=== PATIENT | female | born 1940 | race Caucasian/White ===

== ENCOUNTER 2016-05-13 14:54 | Emergency (ER) | payer OTHER ==
[2016-05-13] MEDS ORDERED: NORCO-5 PO ONE (16:45)
--- NOTE | 2016-05-13 17:14 | PROVIDER DOCUMENTATION ---
HPI-Musculoskeletal Pain/Inj <Zee Skelton - Last Filed: 05/13/16 19:40> - GENERAL Source: patient - HX OF PRESENT ILLNESS-MUSKULOSKELTAL Quality of Pain: reports: aching, dull Severity in ED: moderate Onset/Duration: 4-6 hours ago (1330) Timing: still present, intermittent Modifying Factors: improves with: immobilization. worse with: exercise, movement, palpation Any recent injury?: Yes Locality of Occurance: Other (Dr. 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 denies: back/neck pain, chest pain, diaphoresis, headaches, puncture wound, shortness of breath, sensory/ motor loss, snap/crack/pop sensation, trouble walking - UPPER EXTREMITY PAIN/INJURY Extremities Pain Location: shoulder: left Context / Method of Injury: reports: fell Associated Symptoms: reports: sensory/motor loss, weakness in upper ext. denies : muscle spasms, numbness in upper ext, tingling in upper ext <Tung Bragg - Last Filed: 05/13/16 20:12> - GENERAL Chief Complaint: Fall Stated Complaint: FALL Time Seen by Provider: 05/13/16 16:37 - HX OF PRESENT ILLNESS-MUSKULOSKELTAL Nature of Presenting Problem: Pt is a 75 yof who presents to ER from Dr. Parker's office after falling and injuring her L shoulder. Pt reports that she was walking and got her L foot caught in a door frame floor transition and tripped and fell. Pt fell on her L side and is not unable to move her L arm, but is capable of moving all of her fingers, has good pulses, and has 5/5 motor strength bilaterally. Pt is not taking blood thinners and denies loss of consciousness, but did report that she felt lightheaded/dizzy/nauseas when Dr. Parker would move her arm, but denies lightheadedness/nausea/dizziness now. Pt denies headache or any other complaints. Pt refuses to move L arm and keeps it tucked under her other arm. ( Tung Bragg) Review of Systems - Adult - REVIEW OF SYSTEMS - ADULT Constitutional: denies: chills, fever, fatique, night sweats Eyes: reports: no symptoms reported Ears, Nose, Mouth & Throat: reports: no symptoms reported Cardiovascular: denies: chest pain, heart murmur, irregular heart rate, palpitations, poor circulation, syncope Respiratory: reports: no symptoms reported Gastrointestinal: reports: nausea. denies: abdominal pain, hematemesis, constipation, diarrhea, difficulty swallowing, frequent heartburn, poor appetite , rectal bleeding, vomiting Genitourinary: reports: no symptoms reported Musculoskeletal: reports: bone pain, joint pain, muscle aches, muscle weakness. denies: back pain, frequent leg cramps, joint swelling, neck pain Integumentary: reports: no symptoms reported Neurological: denies: ataxia, dizziness/vertigo, headache/migraines, loss of balance, paresthesia, slurred speech, syncope, tremors Psychiatric: reports: no symptoms reported Endocrine: reports: no symptoms reported Hematologic/Lymphatic: reports: no symptoms reported Allergic/Immunologic: reports: no symptoms reported All Other Systems: Reviewed and Negative <Tung Bragg - Last Filed: 05/13/16 20:12> Past History - Adult - PAST MEDICAL HISTORY-ADULT Review of Records: reports: Nursing Assessment Review, Medications Reviewed - IMMUNIZATION STATUS Childhood Immunizations: See Nurse Assessment Flu Vaccine: See Nurse Assessment <Tung Bragg - Last Filed: 05/13/16 20:12> Physical Exam-Injury Related - Physical Exam-Injury Related Initial Vital Signs Reviewed: Yes General Appearance: appears well, alert, mild distress, thin. negative: obtunded, combative Eyes: PERRL/EOMI, pink conjunctivae, fundi clear, no AV nicking. negative: photophobia, sclera injected, scleral icterus Neck: non-tender, full range of motion, supple. negative: C-spine tenderness, decresed ROM, limited range of motion, muscle spasm, swelling, vertebral point tenderness Respiratory: chest non-tender, lungs clear, normal breath sounds. negative: respiratory distress, decreased breath sounds, accessory muscle use, crackles, rales, rhonchi, stridor, wheezing, pain on inspiration Cardiovascular: normal peripheral pulses, regular rate, rhythm. negative: bradycardia, tachycardia, irregularly irregular Back Exam: no CVA tenderness, no vertebral tenderness. negative: CVA tenderness , decreased range of motion, ecchymosis, muscle spasm, swelling, vertebral tenderness Extremity: tenderness. negative: normal range of motion, non-tender, normal gait, deformity, erythema, inflammation, pulse deficit, slow capillary refill, swelling Integumentary: normal color, warm/dry, blanching. negative: ecchymosis, erythema, swelling, tenderness, warm, abrasion, contusion(s) Neurologic: grossly normal, no motor/sensory deficits. negative: facial droop, focal weakness, motor weakness, sensory deficit Psych/Mental Status: normal thought content, normal thought process, oriented x 3, anxious <Tung Bragg - Last Filed: 05/13/16 20:12> Progress - XRAY 1 XRAY: Left XRAY Study: Shoulder Impression: Abnormal (Humeral neck fx with mild compaction and angulation per Dr. David) - CT/MRI 1 CT Study: Head Impression: Normal (NAD per radiology) - CONSULTS/PCP/HOSPITALIST Notification #1 *Consult/PCP/Hospitalist*: Dr. Irizarry, ortho Time Discussed: 19:41 Reason/Comments: humeral neck fx Consult Disposition: F/U in office (arm sling and f/u in office) <Zee Skelton - Last Filed: 05/13/16 19:40> <Tung Bragg - Last Filed: 05/13/16 20:12> - PLAN OF CARE/RESULTS Progress/Plan/Lab Results: Vital Signs Temp Pulse Resp BP Pulse Ox 05/13/16 16:39 97.5 F L 76 18 115/72 100 Penicillins Allergy (Verified 05/13/16 19:22) ANAPHYLAXIS Aspirin 81 mg PO DAILY 05/13/16 Cetirizine HCl [Zyrtec] 10 mg PO DAILY 05/13/16 Metoprolol Succinate E.r. [Toprol Xl] 50 mg PO BID 05/13/16 Potassium Chloride 10 meq PO DAILY 05/13/16 Laboratory 05/13/16 05/13/16 05/13/16 16:49 16:49 16:49 WBC RBC Hgb Hct MCV MCH MCHC RDW Std Deviation Plt Count MPV Immature Gran % (Auto) Neut % (Auto) Lymph % (Auto) [place] % (Auto) Eos % (Auto) Baso % (Auto) Immature Gran # (Auto) Neut # (Auto) Lymph # (Auto) [place] # (Auto) Eos # (Auto) Baso # (Auto) PT 10.8 INR 1.02 PTT (Actin FS) 23.1 Sodium 140 Potassium 4.4 Chloride 98 Carbon Dioxide 26 Anion Gap 16 BUN 16 Creatinine 0.7 Estimated GFR/1.73 m2 > 60 BUN/Creatinine Ratio 23 Glucose 135 H Calculated Osmolality 283 Calcium 10.0 Total Bilirubin 0.57 AST 33 H ALT 39 H Alkaline Phosphatase 98 Creatine Kinase 68 Troponin T < 0.010 Total Protein 6.6 Albumin 4.0 Globulin 2.6 Albumin/Globulin Ratio 1.5 05/13/16 16:49 WBC 14.19 H RBC 4.55 Hgb 14.9 Hct 43.1 MCV 94.7 MCH 32.7 H MCHC 34.6 RDW Std Deviation 12.5 Plt Count 243 MPV 10.4 Immature Gran % (Auto) 0.1 Neut % (Auto) 89.3 H Lymph % (Auto) 4.9 L [place] % (Auto) 5.6 Eos % (Auto) 0.0 Baso % (Auto) 0.1 Immature Gran # (Auto) 0.02 Neut # (Auto) 12.66 H Lymph # (Auto) 0.69 L [place] # (Auto) 0.80 H Eos # (Auto) 0.00 Baso # (Auto) 0.02 PT INR PTT (Actin FS) Sodium Potassium Chloride Carbon Dioxide Anion Gap BUN Creatinine Estimated GFR/1.73 m2 BUN/Creatinine Ratio Glucose Calculated Osmolality Calcium Total Bilirubin AST ALT Alkaline Phosphatase Creatine Kinase Troponin T Total Protein Albumin Globulin Albumin/Globulin Ratio Orders Category Date Time Status Arm Sling DIRECTED Care 05/13/16 17:51 Active Cardiac Monitoring DIRECTED Care 05/13/16 16:37 Active Finger Stick Blood Sugar (ED) DIRECTED Care 05/13/16 16:37 Active Oxygen Therapy- ED Nursing DIRECTED Care 05/13/16 16:37 Active Saline Loc NOW Care 05/13/16 16:37 Active HEAD W/O CONTRAST [CT] Stat Exams 05/13/16 16:37 Taken SHOULDER-LEFT [RAD] Stat Exams 05/13/16 16:44 Draft CBC WITH ELECTRONIC DIFF [HEME] Stat Lab 05/13/16 16:49 Completed CK PROFILE [SP CHEM] Stat Lab 05/13/16 16:49 Completed COMPREHENSIVE METABOLIC PANEL [CHEM] Stat Lab 05/13/16 16:49 Completed PROTIME WITH INR [COAG] Stat Lab 05/13/16 16:49 Completed PTT [COAG] Stat Lab 05/13/16 16:49 Completed TROPONIN T Stat Lab 05/13/16 16:49 Completed URINALYSIS W/POSS RFLX CULT [URINALYSIS] Stat Lab 05/13/16 16:37 Uncollected Hydrocodone/APAP 5 mg/325 mg [[place]-5] Med 05/13/16 16:45 Discontinued 1 each PO NOW ONE Pulse Oximetry Stat Oth 05/13/16 16:37 Active EKG [EKG] Stat Ther 05/13/16 16:37 Ordered Was given pain rx by pcp today (Zee Skelton) Vital Signs - 24 hr 05/13/16 16:39 Temperature 97.5 F L Pulse Rate 76 Respiratory 18 Rate Blood Pressure 115/72 O2 Sat by Pulse 100 Oximetry Orders Category Date Time Status Arm Sling DIRECTED Care 05/13/16 17:51 Active Cardiac Monitoring DIRECTED Care 05/13/16 16:37 Active Finger Stick Blood Sugar (ED) DIRECTED Care 05/13/16 16:37 Active Oxygen Therapy- ED Nursing DIRECTED Care 05/13/16 16:37 Active Saline Loc NOW Care 05/13/16 16:37 Active HEAD W/O CONTRAST [CT] Stat Exams 05/13/16 16:37 Taken SHOULDER-LEFT [RAD] Stat Exams 05/13/16 16:44 Draft CBC WITH ELECTRONIC DIFF [HEME] Stat Lab 05/13/16 16:49 Completed CK PROFILE [SP CHEM] Stat Lab 05/13/16 16:49 Completed COMPREHENSIVE METABOLIC PANEL [CHEM] Stat Lab 05/13/16 16:49 Completed PROTIME WITH INR [COAG] Stat Lab 05/13/16 16:49 Completed PTT [COAG] Stat Lab 05/13/16 16:49 Completed TROPONIN T Stat Lab 05/13/16 16:49 Completed URINALYSIS W/POSS RFLX CULT [URINALYSIS] Stat Lab 05/13/16 16:37 Uncollected Hydrocodone/APAP 5 mg/325 mg [[place]-5] Med 05/13/16 16:45 Discontinued 1 each PO NOW ONE Pulse Oximetry Stat Oth 05/13/16 16:37 Active EKG [EKG] Stat Ther 05/13/16 16:37 Ordered Laboratory Tests 05/13/16 05/13/16 05/13/16 16:49 16:49 16:49 WBC 14.19 H RBC 4.55 Hgb 14.9 Hct 43.1 MCV 94.7 MCH 32.7 H MCHC 34.6 RDW Std Deviation 12.5 Plt Count 243 MPV 10.4 Immature Gran % (Auto) 0.1 Neut % (Auto) 89.3 H Lymph % (Auto) 4.9 L [place] % (Auto) 5.6 Eos % (Auto) 0.0 Baso % (Auto) 0.1 Immature Gran # (Auto) 0.02 Neut # (Auto) 12.66 H Lymph # (Auto) 0.69 L [place] # (Auto) 0.80 H Eos # (Auto) 0.00 Baso # (Auto) 0.02 PT 10.8 INR 1.02 PTT (Actin FS) 23.1 Sodium 140 Potassium 4.4 Chloride 98 Carbon Dioxide 26 Anion Gap 16 BUN 16 Creatinine 0.7 Estimated GFR/1.73 m2 > 60 BUN/Creatinine Ratio 23 Glucose 135 H Calculated Osmolality 283 Calcium 10.0 Total Bilirubin 0.57 AST 33 H ALT 39 H Alkaline Phosphatase 98 Creatine Kinase 68 Troponin T Total Protein 6.6 Albumin 4.0 Globulin 2.6 Albumin/Globulin Ratio 1.5 05/13/16 16:49 WBC RBC Hgb Hct MCV MCH MCHC RDW Std Deviation Plt Count MPV Immature Gran % (Auto) Neut % (Auto) Lymph % (Auto) [place] % (Auto) Eos % (Auto) Baso % (Auto) Immature Gran # (Auto) Neut # (Auto) Lymph # (Auto) [place] # (Auto) Eos # (Auto) Baso # (Auto) PT INR PTT (Actin FS) Sodium Potassium Chloride Carbon Dioxide Anion Gap BUN Creatinine Estimated GFR/1.73 m2 BUN/Creatinine Ratio Glucose Calculated Osmolality Calcium Total Bilirubin AST ALT Alkaline Phosphatase Creatine Kinase Troponin T < 0.010 Total Protein Albumin Globulin Albumin/Globulin Ratio (Tung Bragg) Departure - Departure Time of Disposition Order: 19:42 Certified Medical Emergency: Emergent <Zee Skelton - Last Filed: 05/13/16 19:40> - Departure Time of Disposition Order: 19:48 Certified Medical Emergency: Emergent <Tung Bragg - Last Filed: 05/13/16 20:12> - Departure DIAGNOSIS: Fx humeral neck Qualifiers: Encounter type: initial encounter Fracture type: closed Laterality: left Qualified Code(s): S42.212A - Unspecified displaced fracture of surgical neck of left humerus, initial encounter for closed fracture Disposition: HOME 01 Condition: Stable Additional Instructions: Follow up with Dr. Irizarry tomorrow ED Follow Up Instructions: You have been treated by a care provider in the Emergency Department. These instructions are being provided to you so you can have an understanding of how to care for yourself upon discharge. Upon discharge from the Emergency Department, you are responsible for making arrangements for follow-up care by a physician of your choice. Take all prescribed medications as directed. Return to the Emergency Department immediately for any new or worsening symptoms. You may call the Physician Referral phone number at [phone] to obtain a list of Physicians who are taking new patients. Referrals: Cyril Parker MD [Primary Care Provider] - Julia Irizarry MD [STAFF PHYSICIAN] - Forms: Return to School/Parent Work Instructions: Humerus Fracture, Treated with Immobilization, [id number] Attestation - Scribe Verification/Attestation Scribe:: Tung Bragg Acting as Scribe for:: Zee Skelton Scribe documention review:: This chart was documented by a scribe and accurately reflects the service the provider performed and the decisions made by the provider. <Tung Bragg - Last Filed: 05/13/16 20:12> Physician Attestation
[2016-05-13 18:28] LABS: INR 1.02; PROTIME 10.8 Seconds (9.2-11.7); PTT 23.1 Seconds (22.0-36.0)
[2016-05-13 18:31] LABS: BASO% 0.1 % (0.0-0.8); HEMATOCRIT 43.1 % (37.0-47.0); HEMOGLOBIN 14.9 g/dL (12.0-16.0); IMM GRAN# 0.02 X1000 (0.0-0.04); IMM GRAN% 0.1 % (0.0-0.5); LYMPH# 0.69 X1000 (1.2-3.4); LYMPH% 4.9 % (20.5-51.1); MANUAL DIFF NEEDED? NO; MCH 32.7 PG (27-31); MCHC 34.6 g/dL (33-37); MCV 94.7 FL (81-99); MONO% 5.6 % (1.7-9.3); MPV 10.4 FL (7.4-10.4); NEUT% 89.3 % (42.2-75.2); PLT 243 X1000 (130-400); RBC 4.55 XMIL (4.2-5.4)
[2016-05-13 18:32] LABS: AGAP 16; ALKALINE PHOSPHATASE 98 U/L (32-104); BUN 16 mg/dL (8-22); CHLORIDE 98 mmol/L (98-107); CK PROFILE 68 U/L (24-173); COSMO 283; GOT 33 U/L (10-30); GPT 39 U/L (10-36); POTASSIUM 4.4 mmol/L (3.5-5.1); SODIUM 140 mmol/L (136-145); TCO2 26 mmol/L (25-35); TOTAL BILIRUBIN 0.57 mg/dL (0.20-1.00); TOTAL PROTEIN 6.6 g/dL (6.3-8.3)
--- NOTE | 2016-05-13 19:02 | Diag Imaging Result Document ---
PROCEDURE NAME: SHOULDER-LEFT - 05/13/2016 LEFT SHOULDER, 3 VIEWS, INCLUDING AN AXILLARY Y VIEW: There is a fracture through the humeral neck with compaction and angulation. The head remains in the glenoid although the humeral shaft is rotated and displaced. IMPRESSION: Humeral neck fracture with mild compaction and angulation. [facility]
[2016-05-13 20:18] VITALS: BP 133/67
--- NOTE | 2016-05-14 13:56 | Diag Imaging Result Document ---
PROCEDURE NAME: HEAD W/O CONTRAST - 05/13/2016 CT BRAIN WITHOUT: FINDINGS: No parenchymal hemorrhage. No epidural or subdural hematoma. No subarachnoid hemorrhage. No mass identified on this noncontrasted exam. There are mild chronic microvascular ischemic changes. No hydrocephalus. No sinus opacification. IMPRESSION: 1. No hemorrhage. 2. Chronic microvascular ischemic changes. A preliminary report was given at 4:59 p.m..
== END 2016-05-13 20:19 | disposition home or self-care (01) ==
LOC: ED 14:54
DX: S42.212A Unspecified displaced fracture of surgical neck of left humerus, initial encounter for closed fracture (principal); M25.512 Pain in left shoulder; M79.602 Pain in left arm; R42 Dizziness and giddiness; M79.1 Myalgia; R11.0 Nausea; M62.81 Muscle weakness (generalized); Z79.82 Long term (current) use of aspirin; Z79.899 Other long term (current) drug therapy; W01.0XXA Fall on same level from slipping, tripping and stumbling without subsequent striking against object, initial encounter
CPT/HCPCS: 70450; 80053; 82550; 84484; 85025; 85610; 85730; 93005